=== PATIENT | female | born 2000 | race Caucasian/White ===

== ENCOUNTER 2023-12-26 04:19 | Emergency (ER) | payer SELFPAY ==
[2023-12-26 04:27] VITALS: BP 119/81; PULSE 87; RESP 20; TEMP 97.4; BMI 27.9
[2023-12-26] MEDS ORDERED: LIDOCAINE HCL 1%, 10 MG/ML (20ML VIAL) ONE (05:09)
[2023-12-26] MEDS: LIDOCAINE HCL 1%, 10 MG/ML (50 mL VIAL) SQ ONE (05:11)
== END 2023-12-26 06:09 | disposition home or self-care (01) ==
LOC: JER 04:19
PROC: 0J990ZZ Drainage of Buttock Subcutaneous Tissue and Fascia, Open Approach (ICD-10-PCS; principal; 2023-12-26)
DX: L05.01 Pilonidal cyst with abscess (principal); M79.18 Myalgia, other site
CPT/HCPCS: 99282-25